=== PATIENT | male | born 1975 | race American Indian/Alaskan Native ===

== ENCOUNTER 2023-04-01 07:16 | Emergency (ER) | payer SELFPAY ==
[2023-04-01] MEDS ORDERED: Cyclobenzaprine 10 MG Tab PO ONE (08:08)
[2023-04-01] MEDS ORDERED: Ketorolac 30 MG/ML SDV IVPUSH ONE (08:08)
[2023-04-01] MEDS ORDERED: Acetaminophen/HYDROcodone 325-10 MG Tab PO ONE (08:08)
== END 2023-04-01 09:28 | disposition home or self-care (01) ==
LOC: FB.ED 07:16
DX: M54.42 Lumbago with sciatica, left side (principal); Z88.6 Allergy status to analgesic agent; Z88.5 Allergy status to narcotic agent; Z91.030 Bee allergy status; Z72.0 Tobacco use
CPT/HCPCS: 96374; 99283-25; A9270-GY; J1885